=== PATIENT | male | born 1990 | race American Indian/Alaskan Native ===

== ENCOUNTER 2018-12-03 03:38 | Emergency (ER) | payer SELFPAY ==
[2018-12-03 03:53] VITALS: BP 121/70
[2018-12-03] MEDS ORDERED: traMADol 50 MG TAB PO ONE (04:27)
[2018-12-03] MEDS ORDERED: AMOXICILLIN 500 MG CAP PO ONE (04:27)
--- NOTE | 2018-12-03 04:33 | Emergency Department Report ---
ED ENT HPI - General Chief complaint: Dental/Oral Stated complaint: MOUTH PAIN/TOOTHACHE Time Seen by Provider: 12/03/18 04:23 Source: patient Mode of arrival: Ambulatory Limitations: No Limitations - History of Present Illness Initial comments: Patient is a 28-year-old -[place] male who presents with dental pain for the past month intermittent there is no gum, or facial swelling. No throat or ear pain patient is tolerating by mouth intake. pain is rated at 5/10 MD complaint: tooth pain Onset/Timin -: month(s) Location: tooth # (19) Severity scale (0 -10): 5 Quality: aching Consistency: intermittent Improves with: none Worsens with: eating, other (hot and cold stimuli ) Context- Dental: history of dental caries, poor dental care Associated Symptoms: toothache. denies: pain with swallowing, sore throat, tinnitus - Related Data Previous Rx's Medication Instructions Recorded Last Taken Type Amoxicillin [Trimox CAP] 500 mg PO Q8H #30 capsule 12/03/18 Unknown Rx Chlorhexidine Mouthwash [Peridex] 15 ml MM BID #1 bottle 12/03/18 Unknown Rx traMADol [Ultram] 50 mg PO Q6HR PRN #12 tablet 12/03/18 Unknown Rx Allergies Allergy/AdvReac Type Severity Reaction Status Date / Time No Known Allergies Allergy Unverified 05/22/13 09:37 ED Dental HPI - General Chief complaint: Dental/Oral Stated complaint: MOUTH PAIN/TOOTHACHE Time Seen by Provider: 12/03/18 04:23 Source: patient Mode of arrival: Ambulatory Limitations: No Limitations - Related Data Previous Rx's Medication Instructions Recorded Last Taken Type Amoxicillin [Trimox CAP] 500 mg PO Q8H #30 capsule 12/03/18 Unknown Rx Chlorhexidine Mouthwash [Peridex] 15 ml MM BID #1 bottle 12/03/18 Unknown Rx traMADol [Ultram] 50 mg PO Q6HR PRN #12 tablet 12/03/18 Unknown Rx Allergies Allergy/AdvReac Type Severity Reaction Status Date / Time No Known Allergies Allergy Unverified 05/22/13 09:37 ED Review of Systems ROS: Stated complaint: MOUTH PAIN/TOOTHACHE Other details as noted in HPI Constitutional: denies: chills, fever Eyes: denies: eye pain, eye discharge, vision change ENT: dental pain. denies: ear pain, throat pain Respiratory: denies: cough, shortness of breath, wheezing Cardiovascular: denies: chest pain, palpitations Endocrine: no symptoms reported Gastrointestinal: denies: abdominal pain, nausea, diarrhea Genitourinary: as per HPI Musculoskeletal: denies: back pain, joint swelling, arthralgia Skin: denies: rash, lesions Neurological: denies: headache, weakness, paresthesias Psychiatric: denies: anxiety, depression Hematological/Lymphatic: denies: easy bleeding, easy bruising ED Past Medical Hx - Past Medical History Previous Medical History?: Yes Hx Psychiatric Treatment: Yes Additional medical history: anxiety. depression. bipolar - Surgical History Past Surgical History?: No - Social History Smoking Status: Former Smoker Substance Use Type: Alcohol - Medications Home Medications: Home Medications Medication Instructions Recorded Confirmed Last Taken Type Amoxicillin [Trimox CAP] 500 mg PO Q8H #30 capsule 12/03/18 Unknown Rx Chlorhexidine Mouthwash [Peridex] 15 ml MM BID #1 bottle 12/03/18 Unknown Rx traMADol [Ultram] 50 mg PO Q6HR PRN #12 tablet 12/03/18 Unknown Rx ED Physical Exam - General Limitations: No Limitations General appearance: alert, in no apparent distress - Head Head exam: Present: atraumatic, normocephalic - Eye Eye exam: Present: normal appearance, PERRL, EOMI Pupils: Present: normal accommodation - ENT ENT exam: Present: mucous membranes moist, TM's normal bilaterally, normal external ear exam - Expanded ENT Exam Expanded Ear exam: Present: normal external inspection Mouth exam: Absent: trismus Teeth exam: Present: dental caries, dental tenderness # (19) Throat exam: Positive: normal inspection, other (uvula midline no exudate no lesions no stridor ). Negative: tonsillar erythema, tonsillomegaly, tonsillar exudate, R peritonsillar mass, L peritonsillar mass - Neck Neck exam: Present: normal inspection - Respiratory Respiratory exam: Present: normal lung sounds bilaterally. Absent: respiratory distress, wheezes, stridor, chest wall tenderness - Cardiovascular Cardiovascular Exam: Present: regular rate, normal rhythm, normal heart sounds. Absent: systolic murmur, diastolic murmur, rubs, gallop - GI/Abdominal GI/Abdominal exam: Present: soft, normal bowel sounds. Absent: bruit, hernia - Rectal Rectal exam: Present: deferred - Extremities Exam Extremities exam: Present: normal inspection, full ROM - Back Exam Back exam: Present: normal inspection, full ROM - Neurological Exam Neurological exam: Present: alert, oriented X3 - Psychiatric Psychiatric exam: Present: normal affect, normal mood - Skin Skin exam: Present: warm, dry, intact, normal color. Absent: rash ED Course Vital Signs 12/03/18 03:52 Temperature 98.2 F Pulse Rate 64 Respiratory 18 Rate Blood Pressure 121/70 O2 Sat by Pulse 97 Oximetry ED Medical Decision Making - Medical Decision Making infected Denta Carries. plan: amoxicillin, peridex, ultram, pt given referral to dentist will follow up with same in 2 days , pt dc'd to home in stable condition at this time. Critical care attestation.: If time is entered above; I have spent that time in minutes in the direct care of this critically ill patient, excluding procedure time. ED Disposition Clinical Impression: Infected dental carries Disposition: DC-01 TO HOME OR SELFCARE Is pt being admited?: No Does the pt Need Aspirin: No Condition: Stable Instructions: Dental Caries (ED) Prescriptions: Chlorhexidine Mouthwash [Peridex] 15 ml MM BID #1 bottle Amoxicillin [Trimox CAP] 500 mg PO Q8H #30 capsule traMADol [Ultram] 50 mg PO Q6HR PRN #12 tablet PRN Reason: Pain Referrals: [facility] [Outside] - 3-5 Days Forms: Work/School Release Form(ED) Time of Disposition: 04:35
== END 2018-12-03 04:48 | disposition home or self-care (01) ==
LOC: ED 03:38
DX: K02.9 Dental caries, unspecified (principal); F41.9 Anxiety disorder, unspecified; F32.9 Major depressive disorder, single episode, unspecified; Z87.891 Personal history of nicotine dependence; Z79.899 Other long term (current) drug therapy

== ENCOUNTER 2019-05-23 09:49 | Emergency (ER) | payer SELFPAY ==
[2019-05-23 10:10] VITALS: BP 130/92
--- NOTE | 2019-05-23 10:53 | Emergency Department Report ---
Chief Complaint: Dental/Oral Stated Complaint: MOUTH PAIN Time Seen by Provider: 05/23/19 10:43 - HPI History of Present Illness: This is a 29-year-old healthy male with no prior medical history presents to the ED complaining of right-sided lower dental pain that is been going on for a while now. Patient states that pain is just worsening and causing him a lot of pain that is cannot sleep. Patient denies any gingival swelling, bleeding or injuries to the dental chills. He denies fever/chills/nausea vomiting abdominal pain or any other problems. - ROS Review of Systems: As noted in HPI - Exam Vital Signs: Vital Signs 05/23/19 09:55 Temperature 98.2 F Pulse Rate 64 Respiratory 18 Rate Blood Pressure 130/92 [Right] O2 Sat by Pulse 100 Oximetry Physical Exam: GENERAL: Alert and oriented x3, no apparent distress, Normal Gait, atraumatic. HEAD: Head is normocephalic and a-traumatic. MOUTH:Mouth is well hydrated and without lesions. Tonsils nonerythematous or swollen, Uvula midline, Tongue not elevated. Mucous membranes are moist. No gingival swelling, bleeding, no dental trauma noted, some caries and fillings noted MSE screening note: Focused history and physical exam performed. Due to findings the following was ordered: ED Medical Decision Making - Medical Decision Making 29-year-old male who presents with l dental pain to the emergency room At this point, patient will be discharged home on referrals for dental clinics to follow-up Follow up with the Dental Clinic as referred Vital signs are normal patient is in no acute distress. Pt had an effect uneventful ED stay ED Disposition for MSE Clinical Impression: Pain, dental Disposition: TO HOME OR SELFCARE Is pt being admited?: No Does the pt Need Aspirin: No Condition: Stable Instructions: Toothache (ED), Dental Caries (ED) Additional Instructions: Make sure to follow up with the dentist as discussed. Take Motrin or Tylenol or naproxen as needed for pain If you have any worsening symptoms or develop new symptoms please return to ED immediately. Referrals: PRIMARY CARE, [Primary Care Provider] - 3-5 Days [facility] [Outside] - 3-5 Days [facility] [Outside] - 3-5 Days Forms: Work/School Release Form(ED) Time of Disposition: 10:53
== END 2019-05-23 11:30 | disposition home or self-care (01) ==
LOC: ED 09:49
DX: K08.89 Other specified disorders of teeth and supporting structures (principal)
CPT/HCPCS: 99281

== ENCOUNTER 2020-03-13 12:01 | Emergency (ER) | payer SELFPAY ==
[2020-03-13 12:08] VITALS: BP 143/90
--- NOTE | 2020-03-13 12:28 | Emergency Department Report ---
ED ENT HPI - General Chief complaint: Dental/Oral Stated complaint: TOOTHACHE Time Seen by Provider: 03/13/20 12:11 Source: patient Mode of arrival: Ambulatory Limitations: No Limitations - History of Present Illness Initial comments: This is a 29-year-old male nontoxic, well nourished in appearance, no acute signs of distress presents to the ED with c/o of acute on chronic dental pain x6 years. Patient denies following up with a dentist. Denies any headache. Patient describes toothache as aching level of 8 out of 10. Patient denies any facial swelling. Patient denies any numbness, tingling, fever, chills, headache, stiff neck, abdominal pain, chest pain, shortness of breath. Patient denies any drug allergies or significant past medical history. MD complaint: tooth pain -: year(s) Location: tooth # 1 - pain here Severity: mild Severity scale (0 -10): 3 Quality: aching Consistency: constant Improves with: none Worsens with: none Associated Symptoms: toothache. denies: fever, cough, gum swelling, pain with swallowing, sore throat, tinnitus, hearing loss, discharge from ear, rhinorrhea - Related Data Previous Rx's Medication Instructions Recorded Last Taken Type Amoxicillin [Trimox CAP] 500 mg PO Q8H #30 capsule 12/03/18 Unknown Rx Chlorhexidine Mouthwash [Peridex] 15 ml MM BID #1 bottle 12/03/18 Unknown Rx traMADoL [Ultram] 50 mg PO Q6HR PRN #12 tablet 12/03/18 Unknown Rx Allergies Allergy/AdvReac Type Severity Reaction Status Date / Time No Known Allergies Allergy Unverified 05/22/13 09:37 ED Dental HPI - General Chief complaint: Dental/Oral Stated complaint: TOOTHACHE Time Seen by Provider: 03/13/20 12:11 Source: patient Mode of arrival: Ambulatory Limitations: No Limitations - Related Data Previous Rx's Medication Instructions Recorded Last Taken Type Amoxicillin [Trimox CAP] 500 mg PO Q8H #30 capsule 12/03/18 Unknown Rx Chlorhexidine Mouthwash [Peridex] 15 ml MM BID #1 bottle 12/03/18 Unknown Rx traMADoL [Ultram] 50 mg PO Q6HR PRN #12 tablet 12/03/18 Unknown Rx Allergies Allergy/AdvReac Type Severity Reaction Status Date / Time No Known Allergies Allergy Unverified 05/22/13 09:37 ED Review of Systems ROS: Stated complaint: TOOTHACHE Other details as noted in HPI Comment: All other systems reviewed and negative Constitutional: denies: chills, fever Eyes: denies: eye pain, eye discharge, vision change ENT: dental pain. denies: ear pain, throat pain Respiratory: denies: cough, shortness of breath, wheezing Cardiovascular: denies: chest pain, palpitations Endocrine: no symptoms reported Gastrointestinal: denies: abdominal pain, nausea, diarrhea Genitourinary: denies: urgency, dysuria Musculoskeletal: denies: back pain, joint swelling, arthralgia Skin: denies: rash, lesions Neurological: denies: headache, weakness, paresthesias Psychiatric: denies: anxiety, depression Hematological/Lymphatic: denies: easy bleeding, easy bruising ED Past Medical Hx - Past Medical History Previous Medical History?: Yes Hx Psychiatric Treatment: Yes Additional medical history: anxiety. depression. bipolar - Surgical History Past Surgical History?: No - Social History Smoking Status: Never Smoker Substance Use Type: None - Medications Home Medications: Home Medications Medication Instructions Recorded Confirmed Last Taken Type Amoxicillin [Trimox CAP] 500 mg PO Q8H #30 capsule 12/03/18 Unknown Rx Chlorhexidine Mouthwash [Peridex] 15 ml MM BID #1 bottle 12/03/18 Unknown Rx traMADoL [Ultram] 50 mg PO Q6HR PRN #12 tablet 12/03/18 Unknown Rx ED Physical Exam - General Limitations: No Limitations General appearance: alert, in no apparent distress - Head Head exam: Present: atraumatic, normocephalic - Eye Eye exam: Present: normal appearance - Expanded ENT Exam Expanded Ear exam: Present: normal external inspection Mouth exam: Present: normal external inspection, tongue normal. Absent: drooling, trismus, muffled voice Teeth exam: Present: dental caries, dental tenderness #. Absent: fractured tooth #, gingival enlargement 1 - Dental Tenderness Throat exam: Positive: normal inspection, other (uvula midline. no facial swelling or abscess noted). Negative: tonsillar erythema, tonsillomegaly, tonsillar exudate, R peritonsillar mass, L peritonsillar mass - Neck Neck exam: Present: normal inspection - Respiratory Respiratory exam: Absent: respiratory distress - Cardiovascular Cardiovascular Exam: Present: regular rate - Extremities Exam Extremities exam: Present: full ROM - Back Exam Back exam: Present: full ROM - Neurological Exam Neurological exam: Present: alert, oriented X3, normal gait - Psychiatric Psychiatric exam: Present: normal affect, normal mood - Skin Skin exam: Present: warm, dry, intact, normal color. Absent: rash ED Course Vital Signs 03/13/20 03/13/20 12:07 12:08 Temperature 98 F Pulse Rate 58 L Respiratory 19 Rate Blood Pressure 143/90 O2 Sat by Pulse 100 Oximetry - Reevaluation(s) Reevaluation #1: 03/13/20 12:24 Patient is speaking in full sentences with no signs of distress noted. ED Medical Decision Making - Medical Decision Making Patient stable and was examined by me. There is no dental abscess or cellulitis. No gingivitis. No acute infection noted upon exam. Vital signs are stable. Patient will be best managed with a dentist for a possible root canal. Patient was given a list of dental referrals. At time of discharge, the patient does not seem toxic or ill in appearance. No acute signs of distress noted. Patient agrees to discharge treatment plan of care. No further questions noted by the patient. Critical care attestation.: If time is entered above; I have spent that time in minutes in the direct care of this critically ill patient, excluding procedure time. ED Disposition Clinical Impression: Toothache Disposition: Z MED SCREENING EXAM-LEFT Is pt being admited?: No Does the pt Need Aspirin: No Condition: Stable Additional Instructions: Follow-up with the dental referrals that you have been provided today or if symptoms worsen and continue return to emergency room as soon as possible. Referrals: PRIMARY CARE, [Primary Care Provider] - 3-5 Days [facility] [Outside] - 3-5 Days [facility] [Outside] - 3-5 Days Time of Disposition: 12:28
== END 2020-03-13 12:36 | disposition left against medical advice (07) ==
LOC: ED 12:01
DX: K08.89 Other specified disorders of teeth and supporting structures (principal); Z53.21 Procedure and treatment not carried out due to patient leaving prior to being seen by health care provider

== ENCOUNTER 2020-03-18 13:42 | Emergency (ER) | payer SELFPAY ==
[2020-03-18 13:57] VITALS: BP 157/102
--- NOTE | 2020-03-18 15:43 | XRay Report ---
CHEST PA AND LATERAL VIEWS INDICATION: chest pain. COMPARISON: None. FINDINGS: Support devices: None. Heart: Within normal limits. Lungs/Pleura: No acute pulmonary or pleural findings. IMPRESSION: 1. No acute findings. Signer Name: Zane Sanders MD Signed: 03/18/2020 3:38 PM Workstation Name: [id number]
--- NOTE | 2020-03-18 15:47 | Emergency Department Report ---
ED Chest Pain HPI - General Chief Complaint: Chest Pain Stated Complaint: SAWYER NUMBNESS/CHEST PRESSURE PUI?: No Time Seen by Provider: 03/18/20 13:59 Source: patient Mode of arrival: Ambulatory Limitations: No Limitations - History of Present Illness Initial Comments: Mr. Roberts is a 29-year-old -Italian male that comes to the emergency room complaining of dental pain radiating from his jaw to his chest. He denies shortness of breath. He denies fever or chills. Patient has been in the ER numerous times for this dental issue and does not follow-up with the dentist. Patient is 29-year-old's old with no risk factors for coronary disease. He has no tachycardia. Patient's blood pressure elevated on admission, he states he does not history of have a history of hypertension ABCs are intact Patient is afebrile. He has no trismus. He has no abscess. No Ludewig's. Vital signs are stable. MD Complaint: chest pain -: Gradual Onset: during rest - Related Data Previous Rx's Medication Instructions Recorded Last Taken Type Amoxicillin [Trimox CAP] 500 mg PO Q8H #30 capsule 03/18/20 Unknown Rx Chlorhexidine Mouthwash [Peridex] 15 ml MM BID #1 bottle 03/18/20 Unknown Rx Ibuprofen [Motrin] 800 mg PO Q8HR PRN #30 tablet 03/18/20 Unknown Rx Allergies Allergy/AdvReac Type Severity Reaction Status Date / Time No Known Allergies Allergy Unverified 05/22/13 09:37 Heart Score - HEART Score History: Slightly suspicious EKG: Normal Age: < 45 Risk factors: No known risk factors Troponin: < normal limit HEART Score: 0 ED Review of Systems ROS: Stated complaint: SAWYER NUMBNESS/CHEST PRESSURE Other details as noted in HPI Comment: All other systems reviewed and negative Constitutional: denies: chills, fever Eyes: denies: eye pain, eye discharge, vision change ENT: denies: ear pain, throat pain Respiratory: denies: cough, shortness of breath, wheezing Cardiovascular: denies: chest pain, palpitations Endocrine: no symptoms reported Gastrointestinal: denies: abdominal pain, nausea, diarrhea Genitourinary: denies: urgency, dysuria Musculoskeletal: denies: back pain, joint swelling, arthralgia Skin: denies: rash, lesions Neurological: denies: headache, weakness, paresthesias Psychiatric: denies: anxiety, depression Hematological/Lymphatic: denies: easy bleeding, easy bruising ED Past Medical Hx - Past Medical History Previous Medical History?: Yes Hx Psychiatric Treatment: Yes Additional medical history: anxiety. depression. bipolar - Surgical History Past Surgical History?: No - Family History Family history: no significant - Social History Smoking Status: Never Smoker Substance Use Type: Alcohol, Marijuana - Medications Home Medications: Home Medications Medication Instructions Recorded Confirmed Last Taken Type Amoxicillin [Trimox CAP] 500 mg PO Q8H #30 capsule 03/18/20 Unknown Rx Chlorhexidine Mouthwash [Peridex] 15 ml MM BID #1 bottle 03/18/20 Unknown Rx Ibuprofen [Motrin] 800 mg PO Q8HR PRN #30 tablet 03/18/20 Unknown Rx ED Physical Exam - General Limitations: No Limitations General appearance: alert, in no apparent distress - Head Head exam: Present: atraumatic, normocephalic - Eye Eye exam: Present: normal appearance - ENT ENT exam: Present: mucous membranes moist - Neck Neck exam: Present: normal inspection - Respiratory Respiratory exam: Present: normal lung sounds bilaterally. Absent: respiratory distress - Cardiovascular Cardiovascular Exam: Present: regular rate, normal rhythm, other (100). Absent: systolic murmur, diastolic murmur, rubs, gallop - GI/Abdominal GI/Abdominal exam: Present: soft, normal bowel sounds - Rectal Rectal exam: Present: deferred - Extremities Exam Extremities exam: Present: normal inspection - Back Exam Back exam: Present: normal inspection - Neurological Exam Neurological exam: Present: alert, oriented X3 - Psychiatric Psychiatric exam: Present: normal affect, normal mood - Skin Skin exam: Present: warm, dry, intact, normal color. Absent: rash ED Course Vital Signs 03/18/20 13:49 Temperature 98.5 F Pulse Rate 127 H Respiratory 20 Rate Blood Pressure 157/102 O2 Sat by Pulse 96 Oximetry GUILLERMO score - Guillermo Score Age > 65: (0) No Aspirin use within the Past 7 Days: (0) No 3 or more CAD Risk Factors: (0) No 2 or more Angina events in past 24 hrs: (0) No Known CAD with more than 50% Stenosis: (0) No Elevated Cardiac Markers: (0) No ST Deviation Greater than 0.5mm: (0) No GUILLERMO Score: 0 ED Medical Decision Making - EKG Data EKG shows normal: sinus rhythm Rate: normal - EKG Data When compared to previous EKG there are: no significant change Interpretation: no acute changes - Radiology Data Radiology results: report reviewed, image reviewed NAP - Medical Decision Making Vital Signs 03/18/20 13:49 Temperature 98.5 F Pulse Rate 127 H Respiratory 20 Rate Blood Pressure 157/102 O2 Sat by Pulse 96 Oximetry Patient has no Ludewig's, no abscess, no trismus. He is taking p.o. without difficulty Twelve-lead EKG is with no acute process. Chest x-ray is clear with no evidence of abnormality. Denies cough, Covid exposure, fever or chills. Patient has been medicated in the ER with clindamycin IM. I had a long discussion with the patient about his medical noncompliance with the dentist. I have explained to him that dental infections can attack his heart and that he needs to take this seriously and see a dentist. I have given him a list of referrals. Patient is being discharged home with antibiotics for his dental pain. He understands that he needs to see a dentist. I been very clear about him not coming to the ER to get this addressed because he can develop endocarditis and other infections from poor dentition. He verbalizes understanding. On discharge blood pressure is taken by the AVINASH is 140/80. Patient notes that his blood pressure has been elevated today, in part due to his pain. But he needs to monitor this and follow-up with primary care if it remains elevated. He verbalizes understanding. - Differential Diagnosis Dental caries, medical noncompliance Critical care attestation.: If time is entered above; I have spent that time in minutes in the direct care of this critically ill patient, excluding procedure time. ED Disposition Clinical Impression: Toothache, Chest pain, Elevated blood pressure reading Disposition: DC-01 TO HOME OR SELFCARE Is pt being admited?: No Does the pt Need Aspirin: No Condition: Stable Instructions: Diet and Dental Disease, Chest Pain (ED) Additional Instructions: MED ORDERED TODAY FOLLOW UP WITH DENTIST KRISHNA FOLLOW UP WITH PCP REFERRALS FOR BOTH ARE GIVEN BELOW Prescriptions: Ibuprofen [Motrin] 800 mg PO Q8HR PRN #30 tablet PRN Reason: Pain, Moderate (4-6) Chlorhexidine Mouthwash [Peridex] 15 ml MM BID #1 bottle Amoxicillin [Trimox CAP] 500 mg PO Q8H #30 capsule Referrals: [facility] [Outside] - 3-5 Days [facility] [Outside] - 3-5 Days [facility] [Outside] - 3-5 Days Time of Disposition: 16:02
[2020-03-18] MEDS ORDERED: IBUPROFEN 800 MG TAB PO ONE (16:07)
[2020-03-18] MEDS ORDERED: CLINDAMYCIN 150 MG/ML 2 ML VIAL IM ONE (18:00)
== END 2020-03-18 17:21 | disposition home or self-care (01) ==
LOC: ED 13:42
DX: K08.89 Other specified disorders of teeth and supporting structures (principal); R03.0 Elevated blood-pressure reading, without diagnosis of hypertension; R07.9 Chest pain, unspecified; F31.9 Bipolar disorder, unspecified; F41.9 Anxiety disorder, unspecified; F12.90 Cannabis use, unspecified, uncomplicated; Z79.899 Other long term (current) drug therapy
CPT/HCPCS: 71046; 93005; 96372

== ENCOUNTER 2021-04-14 07:25 | Emergency (ER) | payer SELFPAY ==
[2021-04-14] MEDS ORDERED: HYDROcodone/ACETAMINOPHEN 5-325 MG TAB PO ONE (11:55)
[2021-04-14] MEDS ORDERED: IBUPROFEN 800 MG TAB PO STA (11:55)
--- NOTE | 2021-04-14 12:00 | Emergency Department Report ---
ED General Adult HPI - General Chief complaint: Pain General Stated complaint: SWOLLEN JAW/LEFT SIDE TOOTH PAIN Time Seen by Provider: 04/14/21 10:49 Source: patient Mode of arrival: Ambulatory Limitations: No Limitations - History of Present Illness Initial comments: 30-year-old -[place] male patient presents with complaints of left lower dental pain x3 days. Patient states history of recurrent dental pain in the area and states he is not currently following with a dental specialist. He denies any fever/chills/sweats or dysphagia. He states his face does appear mildly swollen. NKDA per patient or past medical history - Related Data Previous Rx's Medication Instructions Recorded Last Taken Type Amoxicillin [Trimox CAP] 500 mg PO Q8H #30 capsule 03/18/20 Unknown Rx Chlorhexidine Mouthwash [Peridex] 15 ml MM BID #1 bottle 03/18/20 Unknown Rx Ibuprofen [Motrin] 800 mg PO Q8HR PRN #30 tablet 03/18/20 Unknown Rx Acetaminophen/Codeine [Tylenol 1 tab PO Q8H PRN #8 tab 04/14/21 Unknown Rx /Codeine # 3 tab] Clindamycin [Clindamycin CAP] 300 mg PO Q6H 10 Days #40 cap 04/14/21 Unknown Rx Ibuprofen [Motrin 800 MG tab] 800 mg PO Q8HR PRN #20 tablet 04/14/21 Unknown Rx Allergies Allergy/AdvReac Type Severity Reaction Status Date / Time No Known Allergies Allergy Unverified 05/22/13 09:37 ED Review of Systems ROS: Stated complaint: SWOLLEN JAW/LEFT SIDE TOOTH PAIN Other details as noted in HPI Constitutional: denies: chills, fever, malaise Respiratory: denies: cough, shortness of breath Cardiovascular: denies: chest pain Hematological/Lymphatic: denies: swollen glands ED Past Medical Hx - Past Medical History Hx Psychiatric Treatment: Yes Additional medical history: anxiety. depression. bipolar - Social History Smoking Status: Never Smoker Substance Use Type: Alcohol, Marijuana - Medications Home Medications: Home Medications Medication Instructions Recorded Confirmed Last Taken Type Amoxicillin [Trimox CAP] 500 mg PO Q8H #30 capsule 03/18/20 Unknown Rx Chlorhexidine Mouthwash [Peridex] 15 ml MM BID #1 bottle 03/18/20 Unknown Rx Ibuprofen [Motrin] 800 mg PO Q8HR PRN #30 tablet 03/18/20 Unknown Rx Acetaminophen/Codeine [Tylenol 1 tab PO Q8H PRN #8 tab 04/14/21 Unknown Rx /Codeine # 3 tab] Clindamycin [Clindamycin CAP] 300 mg PO Q6H 10 Days #40 cap 04/14/21 Unknown Rx Ibuprofen [Motrin 800 MG tab] 800 mg PO Q8HR PRN #20 tablet 04/14/21 Unknown Rx ED Physical Exam - General Limitations: No Limitations General appearance: alert, in no apparent distress, obese - Head Head exam: Present: atraumatic, normocephalic - Eye Eye exam: Present: normal appearance - Expanded ENT Exam Expanded Mouth exam: Absent: drooling, trismus, muffled voice Teeth exam: Present: dental caries 1 - Dental Tenderness (Deep dental carry noted with surrounding erythema; no obvious abscess noted; minimal overlying facial swelling without erythema noted) Throat exam: Positive: normal inspection - Respiratory Respiratory exam: Absent: respiratory distress - Cardiovascular Cardiovascular Exam: Present: regular rate - Neurological Exam Neurological exam: Present: alert, oriented X3 - Psychiatric Psychiatric exam: Present: normal affect, agitated - Skin Skin exam: Present: warm, dry, intact, normal color. Absent: rash ED Course Vital Signs 04/14/21 08:14 Temperature 98.1 F Pulse Rate 51 L Respiratory 20 Rate Blood Pressure 148/98 O2 Sat by Pulse 100 Oximetry ED Medical Decision Making - Radiology Data 30-year-old -[place] male patient presents with complaints of left lower dental pain x3 days. Patient states history of recurrent dental pain in the area and states he is not currently following with a dental specialist. He denies any fever/chills/sweats or dysphagia. He states his face does appear mildly swollen. NKDA per patient or past medical history Dental infection noted on exam. Will treat with clindamycin. Recommend follow- up with dental specialist within 2 to 3 days, referral provided. Patient is otherwise well-appearing, his vitals within normal is, he is stable for discharge home. Discussed in detail signs and symptoms that should prompt immediate return to the ED with patient who verbalizes understanding Critical care attestation.: If time is entered above; I have spent that time in minutes in the direct care of this critically ill patient, excluding procedure time. ED Disposition Clinical Impression: Infected dental caries Disposition: 01 HOME / SELF CARE / HOMELESS Is pt being admited?: No Condition: Stable Instructions: Dental Abscess, [id number] Prescriptions: Clindamycin [Clindamycin CAP] 300 mg PO Q6H 10 Days #40 cap Ibuprofen [Motrin 800 MG tab] 800 mg PO Q8HR PRN #20 tablet PRN Reason: Pain, Moderate (4-6) Acetaminophen/Codeine [Tylenol /Codeine # 3 tab] 1 tab PO Q8H PRN #8 tab PRN Reason: Pain , Severe (7-10) Referrals: [facility] [Outside] - 3-5 Days Forms: Work/School Release Form(ED)
[2021-04-14 12:59] VITALS: BP 127/75
== END 2021-04-14 12:59 | disposition home or self-care (01) ==
LOC: ED 07:25
DX: K02.9 Dental caries, unspecified (principal); F41.9 Anxiety disorder, unspecified; F12.90 Cannabis use, unspecified, uncomplicated; F31.9 Bipolar disorder, unspecified; Z79.899 Other long term (current) drug therapy; Z72.89 Other problems related to lifestyle
CPT/HCPCS: 99282